=== PATIENT | female | born 1975 | race Caucasian/White ===

== ENCOUNTER 2024-12-12 13:18 | Day surgery (SDC) | payer MEDICARE, SELFPAY ==
--- NOTE | 2024-12-03 13:20 | SUR.PREOP ---
1320:LM with call back number and arrival time.
[2024-12-03 13:58] VITALS: BMI 35.5
--- NOTE | 2024-12-12 14:21 | P.PNANES_ITS ---
[facility] Disclaimer: The information contained in this section may have been updated after the patient was seen, as this information can be updated by other users. Medical History (Updated 12/03/24 @ 13:53 by Sabina Flores RN) Hypertension High-functioning autism spectrum disorder Hyperlipidemia GERD (gastroesophageal reflux disease) Depression COPD (chronic obstructive pulmonary disease) Family History Unknown Colon cancer Crohn's disease Breast cancer Social History Smoking Status: Never smoker alcohol intake: never substance use type: denies use current occupational status: disabled Travel in the last 8 weeks: None [facility] Anesthesia Checklist Patient Identification Patient Identification: Arm Band and Other: (Healthcare facility escort) Structural Data Admitted From: Long-term Nursing Facility ([facility]) Planned Operative Procedure/s: EGD w/Botox injection Consent for Planned Operative Procedure(s) Verified: Yes Verified Documents: Surgical Consent and History and Physical NPO Status Verified Time NPO: 19:30 Additional verifications Patient : No (Pt. declined test) Anesthesia Reactions: No Cardiovascular Assessment Heart Sounds: S1 & S2 Pulse Rhythm: Irregular Peripheral Edema: No Airway Assessment Mallampati Score:: Class II C-Spine Mobility Assessed: Yes (FROM) TMJ Mobility Assessed: Yes Dentition: Good Dentition (Nothing loose per pt.) Neurological Assessment Level of Consciousness: Awake, Alert, Appropriate and Follows Commands Hx Seizures: No Numbness or tingling in extremities: No Anesthesia Plan Anesthesia Risk discussed: Yes Anesthesia Plan: Verified ASA Class: III Anesthesia Type: MAC
[2024-12-12 14:42] VITALS: BP 139/88; PULSE 98; RESP 18; TEMP 36.7; O2SAT 98
[2024-12-12 15:29] VITALS: O2SAT 100
--- NOTE | 2024-12-12 15:40 | EXP.HP ---
History of Present Illness *Admission Date: 12/12/24 *Reason for visit:: Corkscrew esophagus *History of present illness: Mrs. Burk is a 49-year-old female who is here for diagnostic/therapeutic upper endoscopy secondary to dysphagia and corkscrew esophagus. The examination is deemed medically necessary for EGD. The patient has been seen, interviewed and examined prior to the procedure by both myself and the anesthesia provider. [facility] Disclaimer: The information contained in this section may have been updated after the patient was seen, as this information can be updated by other users. Medical History (Updated 12/12/24 @ 14:32 by Antoinette Rowan RN) Trigger finger Cataract Hypertension High-functioning autism spectrum disorder Hyperlipidemia GERD (gastroesophageal reflux disease) Depression COPD (chronic obstructive pulmonary disease) Surgical History (Updated 12/12/24 @ 14:32 by Antoinette Rowan RN) Hx of esophagogastroduodenoscopy Corneal transplant status Family History Unknown Colon cancer Crohn's disease Breast cancer Social History (Updated 12/12/24 @ 14:28 by Laquita Ballesteros CRNA) Smoking Status: Never smoker alcohol intake: never substance use type: denies use current occupational status: disabled Travel in the last 8 weeks: None caffeine: Yes Have you lived/traveled outside US in past 30 days?: No Contact w/someone who lives/traveled outside US past 30 days?: No Exposure to someone with infectious disease in past 14 days?: No Do you have a fever (greater than 100.4 F or 38 C)?: No Have you tested positive for COVID-19: No Exposed to someone with COVID-19 in past 14 days?: No Do you have a sore throat?: No Do you have a cough?: No Do you have any weakness?: No Do you have any diarrhea?: No Are you experiencing any unusual bleeding?: No Do you have any muscle aches/pain?: No Do you have any abdominal pain?: No Are you experiencing loss of taste or smell?: No Review of Systems Review of Systems Review of systems (narrative): Negative *Cardiovascular Comments: Negative *Gastrointestinal Comments: Negative *Genitourinary Comments: Negative *Musculoskeletal Comments: Negative *Neurologic Comments: Negative Meds Home Medications and Allergies Home Medications ?Medication ?Instructions ?Recorded ?Confirmed ?Type calcium carbonate (Calcium 600) 600 mg PO DAILY 11/13/24 12/12/24 History cholecalciferol (vitamin D3) 50 50 mcg PO DAILY 11/13/24 12/12/24 History mcg (2,000 unit) capsule coenzyme Q10 10 mg capsule 10 mg PO DAILY 11/13/24 12/12/24 History cyclosporine 0.05 % eye drops in a 1 drp ophthalmic (eye) Q12H 11/13/24 12/12/24 History dropperette (Restasis) docusate sodium 100 mg capsule 100 mg PO DAILY 11/13/24 12/12/24 History (Colace) esomeprazole magnesium 40 mg 40 mg PO DAILY 11/13/24 12/12/24 History capsule,delayed release (Nexium) ezetimibe 10 mg tablet (Zetia) 10 mg PO DAILY 11/13/24 12/12/24 History fluticasone propionate 50 1 spray intranasal DAILY 11/13/24 12/12/24 History mcg/actuation nasal spray,suspension (Flonase Allergy Relief) isosorbide dinitrate 5 mg tablet 5 mg PO BID 11/13/24 12/12/24 History lamotrigine 200 mg tablet 200 mg PO DAILY 11/13/24 12/12/24 History (Lamictal) levocetirizine 5 mg tablet 5 mg PO DAILY 11/13/24 12/12/24 History levonorgestrel 0.15 mg-ethinyl 1 tab PO DAILY 11/13/24 12/12/24 History estradiol 0.03 mg tablet (Kurvelo (28)) mecobalamin (vitamin B12) 1,000 1,000 mcg PO DAILY 11/13/24 12/12/24 History mcg chewable tablet metoclopramide HCl 10 mg tablet 10 mg PO TID 11/13/24 12/12/24 History montelukast 10 mg tablet 10 mg PO DAILY 11/13/24 12/12/24 History (Singulair) multivitamin 1 tab PO DAILY 11/13/24 12/12/24 History pravastatin 40 mg tablet 40 mg PO DAILY 11/13/24 12/12/24 History prednisolone acetate 0.12 % eye 1 drp ophthalmic (eye) BID 11/13/24 12/12/24 History drops,suspension (Pred Mild) sertraline 100 mg tablet 100 mg PO DAILY 11/13/24 12/12/24 History vitamins A,C,W-eytd-isxcfp 4,296 1 cap PO DAILY 11/13/24 12/12/24 History mcg-226 mg-90 mg capsule (PreserVision AREDS) New Prescriptions to Start Prescriptions: Allergies Allergy/AdvReac Type Severity Reaction Status Date / Time acetaminophen (From Vicodin) Allergy Unknown Verified 12/03/24 13:52 allergy reaction baclofen Allergy Unknown Verified 12/03/24 13:52 allergy reaction hydrocodone (From Vicodin) Allergy Unknown Verified 12/03/24 13:52 allergy reaction Penicillins Allergy Unknown Verified 12/03/24 13:52 allergy reaction tetracycline Allergy Unknown Verified 12/03/24 13:52 allergy reaction Exam Data for Last 24 hours Vital signs and Labs for Last 24 Hours: Temp Pulse Resp BP Pulse Ox O2 Del Method O2 Flow Rate 98.1 F 98 H 18 139/88 98 Nasal Cannula 5 12/12/24 14:42 12/12/24 14:42 12/12/24 14:42 12/12/24 14:42 12/12/24 14:42 12/12/24 15:29 12/12/24 15:29 *Routine HEENT Exam Head: Present normocephalic Eye: Present EOMI and PERRL ENT: Present mucous membranes moist *Routine Neck Exam Neck: Present supple *Routine Respiratory Exam Respiratory: Present CTA bilaterally *Routine Cardiovascular Exam Cardiovascular: Present RRR *Routine Abdominal Exam Abdominal: Present soft and normoactive bowel sounds; Absent tenderness *Routine Rectal Exam Rectal:: deferred *Routine Genitalia Exam Genitalia:: deferred *Routine Extremities Exam Extremities: Absent cyanosis, clubbing or edema *Routine Skin Exam Skin: Present warm; Absent rash *Routine Neurological Exam Neurological: Present alert and oriented X3 Assessment and Plan *Assessment and plan (1) Corkscrew esophagus: Status: Acute Category: Medical Code(s): K22.4 - Dyskinesia of esophagus (2) Regurgitation of food: Status: Acute Category: Medical Code(s): R11.10 - Vomiting, unspecified (3) Dysphagia: Status: Acute Category: Medical Code(s): R13.10 - Dysphagia, unspecified (4) Globus sensation: Status: Acute Category: Medical Code(s): R09.A2 - Foreign body sensation, throat Plan A/P: 1. Corkscrew esophagus with dysphagia, regurgitation and globus sensation is the preprocedural diagnosis. The patient will be anesthetized/sedated using MAC sedation. The patient has been seen and examined. Cardiac and lung assessment prior to the examination is stable. Proceed with planned EGD with Botox
[2024-12-12] MEDS: BOTULINUM TOXIN TYPE A 100 UNIT/ML IM (15:49)
--- NOTE | 2024-12-12 15:49 | HMH.PROCNOTE ---
[facility] Procedure Note Date: 12/12/24 Time: 15:49 Procedure Note:: Upper Endoscopy Procedure Report: Esophagogastroduodenoscopy with cold biopsies, submucosal injection of Botox and TTS balloon dilation Endoscopost: Patricio Finch II, MD Referring Physician: Keegan Guevara MD, [address] [facility], [place] [address] Date of Procedure: December 12, 2024 Equipment: Olympus GIF 190 standard upper endoscope Sedation: MAC sedation Indications: Ms. Burk is a 49-year-old female resident of [facility] in [place]. She does have a history of dysphagia with corkscrew esophagus. She was getting Botox injections every 12 weeks in [place]. She does report globus sensation with difficulty swallowing. She is on metoclopramide 3 times daily. She does have a prior history of gastroparesis diagnosed previously. Her last EGD with Botox was in August [address] Dmitry Salinas (I believe in [place]). She reports no nausea, vomiting, heartburn or reflux. She is having no dyspepsia. Procedure: Prior to the procedure, a history and physical exam was performed, and patient's medications and allergies were reviewed. The risks, benefits and alternatives of the sedation and procedure were discussed with the patient. All questions were answered and informed consent was obtained. The patient was brought to the procedure room. Patient identification and proposed procedure were verified by the physician and the nurse. The patient was placed in a left lateral decubitus position and the scope was passed under direct vision. Throughout the procedure, the patient's blood pressure, pulse, and oxygen saturations were monitored continuously. The upper GI endoscopy was accomplished without difficulty. The patient tolerated the procedure well. Findings: The scope was passed directly into the upper esophagus and advanced to the third portion of the duodenum. The post bulbar duodenum and duodenal bulb were normal with normal mucosa and conniventes. The scope was withdrawn through a normal duodenal bulb and pylorus into the stomach. There was bile reflux with mild linear reactive gastropathy of the antrum. The body and fundus of the stomach were grossly normal. Biopsies were taken from the antrum. Upon retroflexion there was no hiatal hernia. There is no retained food content within the stomach. The scope was then withdrawn into the esophagus. There was no evidence of reflux esophagitis or Talavera's. There was no corrugation or furrowing. There were strong tertiary contractions within the esophagus. The endoscopic findings were attributable to hypercontractile esophagus/corkscrew esophagus. Botox was then reformulated with saline. 4 aliquots of 20 IU Botox were injected and 2 of these aliquots were injected at 2 cm proximal to the GE junction and the second pair of aliquots was injected at 7 cm proximal to the GE junction. Subsequent to submucosal injection of Botox, the entire esophagus was dilated to 60 Wolof/20 mm with a TTS hydrostatic balloon. There was some resistance at the cricopharyngeus. The remainder of the esophageal mucosa was normal. Impression: 1. Hypercontractile esophagus (nutcracker/corkscrew esophagus) status post Botox injection at 2 and 7 cm from GE junction 2. Cricopharyngeal spasm status post dilation to 20 mm 3. Bile reflux with mild linear reactive gastropathy Plan: I will discuss the case with her caregiver. I do feel that adding Iberogast may help with GI motility and relaxation of the esophagus. I do feel that the bile reflux may be causing some of the hypercontractility of the esophagus.
[2024-12-12 15:53] VITALS: BP 115/73; PULSE 86; RESP 16; TEMP 36.2; O2SAT 93
[2024-12-12 16:03] VITALS: BP 103/73; PULSE 73; RESP 16; O2SAT 95
[2024-12-12 16:13] VITALS: BP 117/78; PULSE 90; RESP 18; O2SAT 95
[2024-12-12 16:23] VITALS: BP 125/69; PULSE 89; RESP 18; O2SAT 96
== END 2024-12-12 16:28 | disposition home or self-care (01) ==
PROVIDERS: Visit Provider Internal Medicine Gastroenterology
PROC: 3E0G8TZ Introduction of Destructive Agent into Upper GI, Via Natural or Artificial Opening Endoscopic (ICD-10-PCS; CPT 43236; principal; 2024-12-12 13:30)
DX: K22.4 Dyskinesia of esophagus (principal); J39.2 Other diseases of pharynx; K31.9 Disease of stomach and duodenum, unspecified; R13.10 Dysphagia, unspecified; R09.A2 Foreign body sensation, throat
CPT/HCPCS: 43236; 43239; 43249; 88305; C1726; J0585

== ENCOUNTER 2025-04-07 07:30 | Day surgery (SDC) | payer MEDICARE, SELFPAY ==
--- NOTE | 2025-04-01 14:49 | SUR.PREOP ---
04/01/25 1445- botox ordered for patient procedure
[2025-04-07 07:55] VITALS: BMI 29.2
[2025-04-07] MEDS: LACTATED RINGERS 1000ML 1,000 ML 50 ML IV (08:04)
[2025-04-07 08:08] VITALS: BP 120/94; PULSE 87; RESP 18; TEMP 36.1; O2SAT 97
--- NOTE | 2025-04-07 08:23 | EXP.ANES.CKL ---
[facility] Disclaimer: The information contained in this section may have been updated after the patient was seen, as this information can be updated by other users. Medical History Trigger finger Cataract Hypertension High-functioning autism spectrum disorder Hyperlipidemia GERD (gastroesophageal reflux disease) Depression COPD (chronic obstructive pulmonary disease) Surgical History Hx of esophagogastroduodenoscopy Corneal transplant status Family History Unknown Colon cancer Crohn's disease Breast cancer Social History Smoking Status: Never smoker alcohol intake: never substance use type: denies use current occupational status: disabled Travel in the last 8 weeks?: None caffeine: Yes Have you lived/traveled outside US in past 30 days?: No Contact w/someone who lives/traveled outside US past 30 days?: No Exposure to someone with infectious disease in past 14 days?: No Do you have a fever (greater than 100.4 F or 38 C)?: No Have you tested positive for COVID-19?: No Exposed to someone with COVID-19 in past 14 days?: No Do you have a sore throat?: No Do you have a cough?: No Do you have any weakness?: No Do you have any diarrhea?: No Are you experiencing any unusual bleeding?: No Do you have any muscle aches/pain?: No Do you have any abdominal pain?: No Are you experiencing loss of taste or smell?: No [facility] Anesthesia Checklist Patient Identification Patient Identification: Arm Band Structural Data Admitted From: Home Planned Operative Procedure/s: EGD Consent for Planned Operative Procedure(s) Verified: Yes Verified Documents: Surgical Consent and History and Physical NPO Status Verified Time NPO: 00:00 Additional verifications Anesthesia Reactions: No Airway Assessment Mallampati Score:: Class II C-Spine Mobility Assessed: Yes TMJ Mobility Assessed: Yes Dentition: Good Dentition Neurological Assessment Level of Consciousness: Awake, Alert and Appropriate Anesthesia Plan Anesthesia Risk discussed: Yes Anesthesia Plan: Verified ASA Class: II Anesthesia Type: MAC
[2025-04-07 08:27] LABS: Urine Pregnancy, HCG Qual. Negative (Negative)
--- NOTE | 2025-04-07 08:51 | EXP.HP ---
History of Present Illness *Admission Date: 04/07/25 *Reason for visit:: Hypercontractile/corkscrew esophagus *History of present illness: Mrs. Burk is a 49-year-old resident of [facility] who is here for therapeutic EGD secondary to dysphagia and corkscrew esophagus with injection of Botox. The examination is deemed medically necessary for EGD. The patient has been seen, interviewed and examined prior to the procedure by both myself and the anesthesia provider. [facility] Disclaimer: The information contained in this section may have been updated after the patient was seen, as this information can be updated by other users. Medical History Trigger finger Cataract Hypertension High-functioning autism spectrum disorder Hyperlipidemia GERD (gastroesophageal reflux disease) Depression COPD (chronic obstructive pulmonary disease) Surgical History Hx of esophagogastroduodenoscopy Corneal transplant status Family History Unknown Colon cancer Crohn's disease Breast cancer Social History Smoking Status: Never smoker alcohol intake: never substance use type: denies use current occupational status: disabled Travel in the last 8 weeks?: None caffeine: Yes Have you lived/traveled outside US in past 30 days?: No Contact w/someone who lives/traveled outside US past 30 days?: No Exposure to someone with infectious disease in past 14 days?: No Do you have a fever (greater than 100.4 F or 38 C)?: No Have you tested positive for COVID-19?: No Exposed to someone with COVID-19 in past 14 days?: No Do you have a sore throat?: No Do you have a cough?: No Do you have any weakness?: No Do you have any diarrhea?: No Are you experiencing any unusual bleeding?: No Do you have any muscle aches/pain?: No Do you have any abdominal pain?: No Are you experiencing loss of taste or smell?: No Review of Systems Review of Systems Review of systems (narrative): Negative *Cardiovascular Comments: Negative *Gastrointestinal Comments: Negative *Genitourinary Comments: Negative *Musculoskeletal Comments: Negative *Neurologic Comments: Negative Meds Home Medications and Allergies Home Medications ?Medication ?Instructions ?Recorded ?Confirmed ?Type coenzyme Q10 10 mg capsule 10 mg PO DAILY 11/13/24 04/07/25 History cyclosporine 0.05 % eye drops in a 1 drp ophthalmic (eye) Q12H 11/13/24 04/07/25 History dropperette (Restasis) docusate sodium 100 mg capsule 100 mg PO DAILY 11/13/24 04/07/25 History (Colace) ezetimibe 10 mg tablet (Zetia) 10 mg PO DAILY 11/13/24 04/07/25 History fluticasone propionate 50 1 spray intranasal DAILY 11/13/24 04/07/25 History mcg/actuation nasal spray,suspension (Flonase Allergy Relief) isosorbide dinitrate 5 mg tablet 5 mg PO BID 11/13/24 04/07/25 History lamotrigine 200 mg tablet 200 mg PO DAILY 11/13/24 04/07/25 History (Lamictal) levocetirizine 5 mg tablet 5 mg PO DAILY 11/13/24 04/07/25 History levonorgestrel 0.15 mg-ethinyl 1 tab PO DAILY 11/13/24 04/07/25 History estradiol 0.03 mg tablet (Kurvelo (28)) multivitamin 1 tab PO DAILY 11/13/24 04/07/25 History pravastatin 40 mg tablet 40 mg PO DAILY 11/13/24 04/07/25 History prednisolone acetate 0.12 % eye 1 drp ophthalmic (eye) BID 11/13/24 04/07/25 History drops,suspension (Pred Mild) sertraline 100 mg tablet 100 mg PO DAILY 11/13/24 04/07/25 History vitamins A,C,O-rtxd-ulggyz 4,296 2 cap PO DAILY 11/13/24 04/07/25 History mcg-226 mg-90 mg capsule (PreserVision AREDS) metoclopramide HCl 10 mg tablet 10 mg PO TID #270 tabs 02/21/25 04/07/25 Rx New Prescriptions to Start Prescriptions: Allergies Allergy/AdvReac Type Severity Reaction Status Date / Time acetaminophen (From Vicodin) Allergy Unknown Verified 04/07/25 08:07 allergy reaction baclofen Allergy Unknown Verified 04/07/25 08:07 allergy reaction hydrocodone (From Vicodin) Allergy Unknown Verified 04/07/25 08:07 allergy reaction Penicillins Allergy Unknown Verified 04/07/25 08:07 allergy reaction tetracycline Allergy Unknown Verified 04/07/25 08:07 allergy reaction Exam Data for Last 24 hours Vital signs and Labs for Last 24 Hours: Temp Pulse Resp BP Pulse Ox O2 Del Method 97.0 F L 87 18 120/94 H 97 Room Air 04/07/25 08:08 04/07/25 08:08 04/07/25 08:08 04/07/25 08:08 04/07/25 08:08 04/07/25 08:08 Laboratory Results - last 24 hr 04/07/25 08:00: Urine HCG, Qual Negative I & O for Last 24 hours: Intake & Output 04/04/25 04/05/25 04/06/25 04/07/25 23:59 23:59 23:59 23:59 Weight 150 lb *Routine HEENT Exam Head: Present normocephalic Eye: Present EOMI and PERRL ENT: Present mucous membranes moist *Routine Neck Exam Neck: Present supple *Routine Respiratory Exam Respiratory: Present CTA bilaterally *Routine Cardiovascular Exam Cardiovascular: Present RRR *Routine Abdominal Exam Abdominal: Present soft and normoactive bowel sounds; Absent tenderness *Routine Rectal Exam Rectal:: deferred *Routine Genitalia Exam Genitalia:: deferred *Routine Extremities Exam Extremities: Absent cyanosis, clubbing or edema *Routine Skin Exam Skin: Present warm; Absent rash *Routine Neurological Exam Neurological: Present alert and oriented X3 Assessment and Plan *Assessment and plan (1) Corkscrew esophagus: Status: Acute Category: Medical Code(s): K22.4 - Dyskinesia of esophagus (2) Regurgitation of food: Status: Acute Category: Medical Code(s): R11.10 - Vomiting, unspecified (3) Dysphagia: Status: Acute Category: Medical Code(s): R13.10 - Dysphagia, unspecified Plan A/P: 1. Corkscrew esophagus/hypercontractile esophagus is the preprocedural diagnosis. The patient will be anesthetized/sedated using MAC sedation. The patient has been seen and examined. Cardiac and lung assessment prior to the examination is stable. Proceed with planned EGD with Botox.
--- NOTE | 2025-04-07 09:02 | HMH.PROCNOTE ---
[facility] Procedure Note Date: 04/07/25 Time: 09:14 Procedure Note:: Upper Endoscopy Procedure Report: Esophagogastroduodenoscopy with cold biopsies, submucosal injection of Botox and TTS balloon dilation Endoscopost: Patricio Finch II, MD Referring Physician: Keegan Guevara MD Date of Procedure: April 07, 2025 Equipment: Olympus GIF 190 standard upper endoscope Sedation: MAC sedation Indications: Mrs. Burk is a 49-year-old [facility] resident with a history of hypercontractile esophagus/corkscrew esophagus and had been getting Botox injections every 12 weeks. She moved to the [facility] from [place] and has had regurgitation of food and dysphagia. Her last EGD with Botox was December 12, 2024. Procedure: Prior to the procedure, a history and physical exam was performed, and patient's medications and allergies were reviewed. The risks, benefits and alternatives of the sedation and procedure were discussed with the patient. All questions were answered and informed consent was obtained. The patient was brought to the procedure room. Patient identification and proposed procedure were verified by the physician and the nurse. The patient was placed in a left lateral decubitus position and the scope was passed under direct vision. Throughout the procedure, the patient's blood pressure, pulse, and oxygen saturations were monitored continuously. The upper GI endoscopy was accomplished without difficulty. The patient tolerated the procedure well. Findings: The scope was passed directly into the upper esophagus and advanced to the fourth portion of duodenum and proximal jejunum. A cold biopsy was taken from the proximal jejunum for disaccharidase assay. The proximal jejunum, post bulbar duodenum, ampulla and duodenal bulb were normal with normal mucosa and conniventes. The scope was withdrawn through a normal duodenal bulb and pylorus into the stomach. There was bile reflux with linear reactive gastropathy. The body and fundus of the stomach were normal. There was no hiatal hernia. The scope was then withdrawn into the esophagus. There was no evidence of reflux esophagitis. There were some tertiary contractions but this was milder than seen previously. There were no strictures, furrowing, rings or corrugation. There is no evidence of reflux esophagitis or Talavera's. Botox was then reconstituted in 4 mL of saline. 100 units of Botox were reformulated and 4 aliquots of 25 IU Botox were injected at 2 and 7 cm from the GE junction with 2 aliquots at each location. The entire esophagus was then dilated to 20 mm with a TTS hydrostatic balloon with minimal resistance. The remainder of the esophageal mucosa was normal. Impression: 1. Hypercontractile esophagus (corkscrew esophagus) status post Botox injection and TTS balloon dilation 2. Bile reflux with mild linear reactive gastropathy Plan: Notably, there was less intense tertiary contractions on this exam than the prior exam. I am not convinced that she will need Botox injection every 3 months. I do feel that this is somewhat driven by the bile reflux. I did take biopsies for disaccharidase assay. I would like for her to continue the combined fiber bowel regimen (MiraLAX plus Citrucel) daily.
[2025-04-07] MEDS: BOTULINUM TOXIN TYPE A 100 UNIT/ML IM (09:14)
[2025-04-07 09:21] VITALS: BP 110/72; PULSE 84; RESP 17; TEMP 36.6; O2SAT 96
[2025-04-07 09:31] VITALS: BP 109/69; PULSE 83; RESP 18; TEMP 36.6; O2SAT 100
[2025-04-07 09:41] VITALS: BP 111/83; PULSE 86; RESP 18; TEMP 36.6; O2SAT 98
[2025-04-07 09:51] VITALS: BP 118/74; PULSE 79; RESP 18; TEMP 36.6; O2SAT 99
[2025-04-14 13:10] LABS: Disclaimer Notes (.); Interpretation Notes (.); Lactase 90.99 (>/= 14.0); Maltase 453.8 (>/= 110.0); Palatinase 26.45 (>/= 8.5); Reference Notes (.); Sucrase 129.57 (>/= 25.0)
== END 2025-04-07 09:55 | disposition home or self-care (01) ==
PROVIDERS: PCP Internal Medicine; Visit Provider Internal Medicine Gastroenterology
PROC: 3E0G8TZ Introduction of Destructive Agent into Upper GI, Via Natural or Artificial Opening Endoscopic (ICD-10-PCS; CPT 43236; principal; 2025-04-07 07:30)
DX: K22.4 Dyskinesia of esophagus (principal); R11.10 Vomiting, unspecified; R13.10 Dysphagia, unspecified; K31.9 Disease of stomach and duodenum, unspecified; K21.9 Gastro-esophageal reflux disease without esophagitis; F84.0 Autistic disorder; E78.5 Hyperlipidemia, unspecified; J44.9 Chronic obstructive pulmonary disease, unspecified; Z94.7 Corneal transplant status; Z79.899 Other long term (current) drug therapy; Z79.890 Hormone replacement therapy; Z88.5 Allergy status to narcotic agent; Z88.8 Allergy status to other drugs, medicaments and biological substances; Z88.0 Allergy status to penicillin; Z88.1 Allergy status to other antibiotic agents
CPT/HCPCS: 43236; 43239; 43249; 81025; 82657; C1726; J0585; J2003; J2704; J7120